=== PATIENT | male | born 1950 | race Caucasian/White ===

== ENCOUNTER → 2017-05-25 | Outpatient (CLI) | payer MEDICARE, OTHER, BC ==
[~2017-05-25] MED LIST: ASP81CT PO; ASP81TEC PO; ASPI-266 PO; ATR20T PO; CINN1CAP2 PO; CLOP75TA PO; GEMF600T3 PO; METO-272 PO; METO50TA7 PO; MULT-974 PO; NF-METANX PO; OMEP20CA6 PO; OMG1KC PO; PNT40TEC PO; TICA90TA PO
== END ==
LOC: CARD 13:37
PROVIDERS: ATTEND Internal Medicine Cardiovascular Disease
DX: I25.10 Atherosclerotic heart disease of native coronary artery without angina pectoris (principal); R07.9 Chest pain, unspecified; R06.00 Dyspnea, unspecified; I10 Essential (primary) hypertension; K27.9 Peptic ulcer, site unspecified, unspecified as acute or chronic, without hemorrhage or perforation; R00.2 Palpitations
CPT/HCPCS: 93351

== ENCOUNTER 2020-08-06 05:36 | Outpatient (CLI) | payer MEDICARE, OTHER ==
[~2020-08-06] VITALS: Ht 170.2 cm; Wt 85.9 kg
[2020-08-13] MEDS ORDERED: ALFU10TA PO ×2 (09:18)
[2020-08-13] MEDS ORDERED: METO50TA7 PO (09:18)
[2020-08-13] MEDS ORDERED: MULT-1136 PO ×2 (09:18)
[2020-08-13] MEDS ORDERED: OMEG1CAP24 PO ×2 (09:18)
[2020-08-13] MEDS ORDERED: SULF1TAB35 PO ×2 (09:18)
[2020-08-13] MEDS ORDERED: ASPI-1238 PO ×2 (09:18)
[2020-08-13] MEDS ORDERED: HYDR25TA4 PO ×2 (09:18)
[2020-08-13] MEDS ORDERED: METO50TA15 PO ×2 (09:20)
== END 2020-08-12 14:06 | disposition home or self-care (01) ==
LOC: PREOP 05:36
PROVIDERS: ATTEND Surgery
DX: Z01.818 Encounter for other preprocedural examination (principal)

== ENCOUNTER 2020-08-13 08:50 | Day surgery (SDC) | payer MEDICARE, OTHER ==
--- NOTE | 2020-08-06 03:55 | HISTORY AND PHYSICAL ---
DATE OF SERVICE: DATE OF ADMISSION: 08/13/2020. HISTORY OF PRESENT ILLNESS: The patient is a 71-year-old male in need of a screening colonoscopy. His last colonoscopy was approximately 16 years ago, which was normal. He states that he does have some intermittent episodes of constipation as well as diarrhea as well as occasional abdominal bloating. He does not report any red blood per rectum nor any dark tarry stools. He also does not report any family history of colon cancer. PAST MEDICAL HISTORY: Hypertension, degenerative joint disease, and horseshoe kidney. PAST SURGICAL HISTORY: Left shoulder replacement in 2020, left ureteral reinsertion, trigger finger release, carpal tunnel release, tonsillectomy, and bilateral inguinal hernia repair. ALLERGIES: PENICILLIN and CECLOR. MEDICATIONS: Uroxatral, metoprolol, aspirin, and hydrochlorothiazide. SOCIAL HISTORY: Negative smoke and social alcohol. FAMILY HISTORY: Noncontributory. REVIEW OF SYSTEMS: A well-nourished male in no acute distress. He is not experiencing any shortness of breath or difficulty breathing. No chest pain, palpitations or diaphoresis. No nausea, vomiting with intermittent episodes of diarrhea, constipation, no red blood per rectum, no dark tarry stools. No fever, chills, no recent inadvertent weight loss. All other review of systems negative. PHYSICAL EXAMINATION: VITAL SIGNS: Stable, current weight 189.2 pounds at 5 feet 7 inches. CHEST: Clear. Good breath sounds bilaterally. HEART: Regular, no murmurs. EXTREMITIES: No lower extremity edema and negative Homans sign. HEENT: No scleral icterus. NECK: No cervical lymphadenopathy. ABDOMEN: Soft, nontender, and nondistended. No palpable masses. ASSESSMENT AND PLAN: A 71-year-old male in need of a screening colonoscopy. Risks and benefits of the procedure were explained and he is in full understanding and would like to proceed with a screening colonoscopy, which we will schedule. Job ID: [id number] DocumentID: [id number] Dictated Date: 07/29/2020 17:27:11 Deer Farmer Date: 07/29/2020 18:21:06 Dictated By: JOSÉ LUIS ALEJANDRO MD
[2020-08-13] VITALS (7 sets, daily range): BP systolic 109–136; BP diastolic 55–85
[~2020-08-13] VITALS: Ht 170.3 cm; Wt 85.9 kg
[2020-08-13] MEDS ORDERED: LACTATED RINGERS 1,000 ML IV ONE (08:54)
[2020-08-13] MEDS ORDERED: LACTATED RINGERS 1,000 ML IV STA (09:08)
[2020-08-13] MEDS ORDERED: LIDOCAINE JELLY 2% 6 ML SYRINGE MM PRN (09:15)
[2020-08-13] MEDS ORDERED: OMEG1CAP24 PO ×2 (09:18)
[2020-08-13] MEDS ORDERED: HYDR25TA4 PO ×2 (09:18)
[2020-08-13] MEDS ORDERED: SULF1TAB35 PO ×2 (09:18)
[2020-08-13] MEDS ORDERED: ASPI-1238 PO ×2 (09:18)
[2020-08-13] MEDS ORDERED: ALFU10TA PO ×2 (09:18)
[2020-08-13] MEDS ORDERED: MULT-1136 PO ×2 (09:18)
[2020-08-13] MEDS ORDERED: METO50TA7 PO (09:18)
[2020-08-13] MEDS ORDERED: METO50TA15 PO ×2 (09:20)
[2020-08-13] MEDS ORDERED: MIDAZOLAM 2 MG/2 ML (VERSED) VIAL ONE (10:38)
[2020-08-13] MEDS ORDERED: PROPOFOL INJECTION 50 ML IV ONE (10:38)
--- NOTE | 2020-08-13 10:49 | Progress Note-Pre Operative ---
Pre-Operative Progress Note H&P Reviewed The H&P was reviewed, patient examined and no changes noted. Date Seen by Provider: Aug 13, 2020 Time Seen by Provider: 10:00 Date H&P Reviewed: Aug 13, 2020 Time H&P Reviewed: 10:00 Pre-Operative Diagnosis: screening o JOSÉ LUIS ALEJANDRO MD Aug 13, 2020 10:49
--- NOTE | 2020-08-13 10:50 | Discharge Inst-Surgical ---
D/C Lap Instructions-JAVON Follow Up Activity as tolerated High Fiber Diet 25g or more per day Avoid Alcohol, Caffeine, Spicy Rewey and Acid foods. Drink 64 fluid oz or more of fluids per day. Symptoms to Report: Fever over 101 degree F, Nausea/Vomiting If any problems/questions: Contact your physician or go to Emergency Room JOSÉ LUIS ALEJANDRO MD Aug 13, 2020 10:50
[2020-08-13] MEDS ORDERED: morphine INJ 10 MG/ML 1ML (SYR OR VIAL) IVP PRN ×2 (11:00)
[2020-08-13] MEDS ORDERED: HYDROcodone/APAP 5 MG/325 MG (LORTAB) TAB PO PRN (11:00)
[2020-08-13] MEDS ORDERED: ACETAMINOPHEN 325 MG TABLET PO PRN (11:00)
[2020-08-13] MEDS ORDERED: ONDANSETRON 4 MG/2 ML (SDV) Z0FRAN IVP PRN (11:00)
--- NOTE | 2020-08-13 11:20 | Progress Note-Post Operative ---
Post-Operative Progess Note Surgeon (s)/Services Advisor (s) Surgeon JOSÉ LUIS ALEJANDRO MD Services Advisor: none Pre-Operative Diagnosis screening colo Post-Operative Diagnosis mild chronic stage 2 ext and int hemorrhoids. Procedure & Operative Findings Date of Procedure 08/13/20 Procedure Performed/Findings colonoscopy Anesthesia Type mac Estimated Blood Loss Estimated blood loss (mL): minimal Specimens/Packing Specimens Removed none JOSÉ LUIS ALEJANDRO MD Aug 13, 2020 11:20
--- NOTE | 2020-08-13 16:01 | OPERATIVE REPORT ---
DATE OF SERVICE: 08/13/2020 ATTENDING PRIMARY CARE PHYSICIAN: Neeru Lewis DO PREOPERATIVE DIAGNOSIS: Screening colonoscopy. POSTOPERATIVE DIAGNOSES: Mild chronic stage II external and internal hemorrhoids. PROCEDURE: Colonoscopy. SURGEON: José Luis Palmer MD. ANESTHESIA: Monitored anesthesia care. ESTIMATED BLOOD LOSS: Minimal. FINDINGS: Mild chronic stage II external and internal hemorrhoids. DISPOSITION: The patient tolerated the procedure well. INDICATIONS: The patient is a 70-year-old male known to us. He is in need of a screening colonoscopy. His last colonoscopy was approximately 16 years ago and he believes this to be normal. He does not report any major issues with diarrhea nor constipation as well as no red blood per rectum nor any dark tarry stools. He also does not report any family history of colon cancer. DESCRIPTION OF PROCEDURE: The patient was brought to the endoscopy suite, laid in the left lateral decubitus position. After adequate IV pain and sedative medications and monitored anesthesia care, a digital rectal examination was performed, which revealed mild chronic stage II external and internal hemorrhoids, not actively edematous nor inflamed and no bleeding. Normal sphincter tone was felt and there were no palpable masses. Prostate gland was palpable and appeared normal. The endoscope was then intubated and anus and rectum gently insufflated. The endoscope was then advanced through the valves of Lance of the rectum with no polyps or any neoplasms identified. We then advanced the scope through the sigmoid colon where no diverticulosis identified. The endoscope was then advanced and remainder of the descending, transverse and ascending colon to the cecum. These segments were normal. There were no polyps or any neoplasms identified throughout the colon or rectum. The endoscope was slowly withdrawn while taking a second look and suctioning of residual air with no additional findings. The patient tolerated the procedure well. We will recommend continued medical management with incorporation of high fiber diet with at least 30 grams of fiber daily as well as significant amounts of water to promote soft stools on a daily basis. If he is asymptomatic, he does not need another colonoscopy for another 10 years. Job ID: [id number] DocumentID: [id number] Dictated Date: 08/13/2020 11:15:53 Cage Manager Date: 08/13/2020 16:01:27 Dictated By: JOSÉ LUIS PALMER MD
--- NOTE | 2020-08-14 15:14 | Anesthesia-General Post-Op ---
MAC Patient Condition Mental Status/LOC: Same as Preop Cardiovascular: Satisfactory Nausea/Vomiting: Absent Respiratory: Satisfactory Pain: Controlled Complications: Absent Post Op Complications Complications None Follow Up Care/Instructions Patient Instructions None needed. Anesthesiology Discharge Order Discharge Order Patient is doing well, no complaints, stable vital signs, no apparent adverse anesthesia problems. No complications reported per nursing. MARGARITA OSMAN CRNA Aug 14, 2020 15:14
== END 2020-08-13 12:15 | disposition home or self-care (01) ==
LOC: ENDO 08:50
PROVIDERS: ATTEND Surgery
DX: K64.1 Second degree hemorrhoids (principal); K59.00 Constipation, unspecified; R19.7 Diarrhea, unspecified; I10 Essential (primary) hypertension; M19.90 Unspecified osteoarthritis, unspecified site; Z98.890 Other specified postprocedural states; Z87.891 Personal history of nicotine dependence; Z79.82 Long term (current) use of aspirin; Z79.899 Other long term (current) drug therapy

== ENCOUNTER → 2021-05-18 | Outpatient (CLI) | payer MEDICARE, OTHER ==
[~2021-05-18] MED LIST changes: +ALFU10TA PO; +ASPI-1238 PO; +HYDR25TA4 PO; +METO50TA15 PO; +MULT-1136 PO; +OMEG1CAP24 PO; +SULF1TAB38 PO
[2021-05-18 10:51] VITALS: BP 122/70
== END ==
LOC: CARD 10:00
PROVIDERS: ATTEND Internal Medicine Cardiovascular Disease
DX: I11.9 Hypertensive heart disease without heart failure (principal); I25.10 Atherosclerotic heart disease of native coronary artery without angina pectoris
CPT/HCPCS: 93306; 93351